=== PATIENT | female | born 1995 | race Caucasian/White ===

== ENCOUNTER 2020-07-21 19:58 | Outpatient (CLI) | payer OTHER | END 2020-07-21 21:43 | disposition home or self-care (01) | LOC: GENOP 19:58 | PROVIDERS: Obstetrics & Gynecology | DX: O62.9 Abnormality of forces of labor, unspecified (principal) | CPT/HCPCS: 80307; 81001; G0463 ==

== ENCOUNTER 2020-07-22 12:05 | Outpatient (CLI) | payer OTHER ==
[2020-07-23] MEDS ORDERED: PRENATAL VITAM1 EAC3 PO (11:00)
[2020-07-23] MEDS ORDERED: DOCUSATE SODIU100 MG PO (18:50)
[2020-07-23] MEDS ORDERED: IBUPROFEN800 MG PO (18:50)
== END 2020-07-22 14:24 | disposition home or self-care (01) ==
LOC: GENOP 12:05
DX: O26.853 Spotting complicating pregnancy, third trimester (principal); O99.891 Other specified diseases and conditions complicating pregnancy; R42 Dizziness and giddiness; Z3A.39 39 weeks gestation of pregnancy
CPT/HCPCS: G0463

== ENCOUNTER 2020-07-23 10:17 | Inpatient (IN) | payer OTHER ==
[~2020-07-23] VITALS: Ht 149.9 cm; Wt 57.2 kg
[2020-07-23] MEDS ORDERED: PRENATAL VITAM1 EAC3 PO (11:00)
[2020-07-23 11:08] LABS: HEMOGLOBIN 11.8 gm/dl (12.3-15.3); RED BLOOD COUNT 4.22 M/UL (4.00-5.10); WHITE BLOOD COUNT 25.6 K/UL (4.5-11.0)
[2020-07-23] MEDS ORDERED: IBUPROFEN800 MG PO (18:50)
[2020-07-23] MEDS ORDERED: DOCUSATE SODIU100 MG PO (18:50)
[2020-07-24 05:54] LABS: HEMOGLOBIN 8.9 gm/dl (12.3-15.3)
[2020-07-25 06:02] LABS: HEMOGLOBIN 9.3 gm/dl (12.3-15.3)
== END 2020-07-25 14:17 | disposition home or self-care (01) | DRG 807 ==
LOC: GENOP 10:17 → OB 10:46
PROVIDERS: Obstetrics & Gynecology; ADMIT Obstetrics & Gynecology
PROC: 10E0XZZ Delivery of Products of Conception, External Approach (ICD-10-PCS; principal; 2020-07-23)
PROC: 10D17Z9 Manual Extraction of Products of Conception, Retained, Via Natural or Artificial Opening (ICD-10-PCS; 2020-07-23)
PROC: 10907ZC Drainage of Amniotic Fluid, Therapeutic from Products of Conception, Via Natural or Artificial Opening (ICD-10-PCS; 2020-07-23)
PROC: 0HQ9XZZ Repair Perineum Skin, External Approach (ICD-10-PCS; 2020-07-23)
DX: O77.0 Labor and delivery complicated by meconium in amniotic fluid (principal); Z37.0 Single live birth; Z3A.39 39 weeks gestation of pregnancy; O99.02 Anemia complicating childbirth; D64.9 Anemia, unspecified; O70.0 First degree perineal laceration during delivery; F17.200 Nicotine dependence, unspecified, uncomplicated; O99.333 Smoking (tobacco) complicating pregnancy, third trimester; Z20.822 Contact with and (suspected) exposure to COVID-19
CPT/HCPCS: 36415; 51702; 80307; 81001; 82800; 85014; 85018; 85025; 85461; 86850; 86900; 86901; 87635; 90471; 90715; G0463; J2001; J2590; J2790; J2795; J3010